=== PATIENT | male | born 1990 | race African-American/Black ===

== ENCOUNTER 2021-02-11 18:00 | Inpatient (IN) | payer MEDICAID, SELFPAY ==
--- NOTE | ~2021-02-11 | CT_ITS ---
EXAMINATION: CT CHEST WITHOUT CONTRAST CLINICAL INFORMATION: Persistent cough COMPARISON: Normal chest radiograph earlier today TECHNIQUE: Multidetector volumetric CT imaging of the chest was done. Axial MIP volume rendering provided. Sagittal and coronal reformatted images were obtained. This CT examination was performed using dose optimization techniques as appropriate, variously including the following: *Automated exposure control *Adjustment of mA and/or kV according to patient size (this includes techniques or standardized protocols for targeted exams where dose is matched to indication/reason for exam; i.e. extremities or head) *Use of iterative reconstruction technique DLP: 292 mGy-cm FINDINGS: LUNGS: The lungs are clear with no evidence of inflammation or nodules. MEDIASTINUM: The trachea is near the upper limits of normal in size measuring 22 x 26 mm. No mediastinal or hilar lymphadenopathy is seen. The thoracic aorta is of normal caliber. PLEURA: There is no pleural effusion. No pleural mass or thickening. AXILLA: No lymphadenopathy. UPPER ABDOMEN: Unremarkable. OSSEOUS STRUCTURES: Unremarkable. CT/CT chest wo con IMPRESSION: Negative exam.
--- NOTE | ~2021-02-11 | XR_ITS ---
EXAMINATION: XR CHEST CLINICAL INFORMATION: Shortness of breath COMPARISON: None TECHNIQUE: Frontal view of the chest was obtained. FINDINGS: No significant abnormality is noted involving the heart, lungs, mediastinum, bony thorax or soft tissues. XR/XR chest 1V IMPRESSION: Unremarkable examination.
[2021-02-11 18:09] VITALS: BP 141/90; PULSE 89; RESP 18; TEMP 37.4; O2SAT 98; BMI 25.0
--- NOTE | 2021-02-11 19:18 | ED_ITS ---
HPI - SOB/Dyspnea General Chief Complaint: Dyspnea Stated Complaint: diff breathing Time Seen by Provider: 02/11/21 19:15 Source: patient Mode of arrival: ambulatory Limitations: no limitations History of Present Illness HPI Narrative: 30 years old male came in for evaluation of asthma and wheezing. Symptoms started 2 weeks ago, patient has been evaluated twice in the ED in the last 2 weeks despite patient being using bronchodilator and steroids. Patient decline fever or chills, no recent travel or immobilization, no lower extremities swelling or tenderness, no history of DVT or PE. Related Data Allergies Allergy/AdvReac Type Severity Reaction Status Date / Time haloperidol [From Haldol] Allergy Unknown Verified 02/11/21 18:09 Review of Systems Review of Systems: All other systems are reviewed and are negative Constitutional: Reports as per HPI and Reports no additional constitutional complaints Eyes: Reports as per HPI and Reports no additional eye complaints Reports system reviewed and no additional complaints, except as documented Cardiovascular: Reports as per HPI and Reports no additional cardiovascular complaints Respiratory: Reports as per HPI and Reports no additional respiratory complaints Gastrointestinal: Reports as per HPI and Reports no additional gastrointestinal complaints Genitourinary: Reports no additional female genitourinary complaints Musculoskeletal: Reports no additional musculoskeletal complaints Skin/Breast: Reports system reviewed and no additional complaints, except as docu Psychiatric: Reports no additional psychiatric complaints Endocrine: Reports no additional endocrine complaints Hematologic/Lymphatic: Reports no additional hematologic/lymphatic complaints Allergic/Immunologic: Reports no additional allergic/immunologic complaints Reports system reviewed and no additional complaints, except as documented and Reports Abnormal speech present FOR[facility]LY [facility], [facility] Social History Social History Advance Directives: No Advance Directives Information Provided: Yes Physical Exam Vital Signs: Vital Signs: Last Vital Signs Temp 99.4 F 02/11/21 18:09 Pulse 83 02/11/21 19:39 Resp 18 02/11/21 18:09 BP 141/90 H 02/11/21 18:09 Pulse Ox 98 02/11/21 18:09 Body Mass Index 25.0 Vital signs have been reviewed as appeared to be correct. Blood pressure norm al. Heart rate normal. Respiration rate normal. Temperature normal. Oxygen saturation normal. Appearance: Alert. Oriented X3. No acute distress. Head: Normal external exam. Normocephalic. Atraumatic. No Mariee signs noted. No raccoon eyes noted Eyes: PERRLA. EOMI. Conjunctiva and sclera normal. Eyelids normal. ENT: TM's Normal. Pharynx normal. Uvula midline. Moist mucous membranes. No trismus noted. No drooling noted. No muffled voice noted. Neck: Normal inspection. Neck supple. FROM. No adenopathy. Thyroid Normal. No meningeal signs. No neck mass noted. CVS: Normal heart rate and rhythm. Heart sound normal. No murmurs noted. Pulses normal throughout. Respiratory: No respiratory distress. Painless inspiration. Bilateral diffuse mild expiratory wheezing, with prolonged expiration. accessory muscle usage noted or decreased air movement noted. Abdomen: Soft and nontender. Bowel sounds normal in all 4 quadrants. No distention noted. No organomegaly noted. No visible injury noted. Back: No CVA tenderness. Full range of motion noted. Skin: Skin warm and dry. Normal skin color. Normal skin turgor. No rashes/lesions/lacerations noted. Extremities: No lower extremity edema. Extremities exhibit normal range of motion. Extremities nontender. Neuro: Oriented X 3. Cranial nerve exam: II-XII are grossly intact No motor deficit. No sensory deficit. Reflexes normal. Course Course Course Narrative: Assessment and plan. 30-year-old male with history of asthma, been having asthma symptoms for the past 2 weeks despite using prednisone/bronchodilator, patient was evaluated twice in the ED in the last weeks with no improvement. Patient declined risk for PE or DVT. Will admit patient for continuous bronchodilator and steroid IV MDM - SOB/Dyspnea Lab Data Attestation: I reviewed the patient's lab results. Result diagrams: 02/11/21 19:36 02/11/21 19:36 Labs: Lab Results 02/11/21 02/11/21 02/11/21 Range/Units 19:36 19:36 19:36 WBC 7.7 (4.8-10.8) X10*3/uL RBC 4.93 (4.60-5.80) X10*6/uL Hgb 15.1 (14.0-18.0) g/dl Hct 43.4 (42-52) % MCV 88.0 (80-98) fL MCH 30.6 (27.0-33.0) pg MCHC 34.8 (31.0-36.0) g/dl RDW 12.7 (11.0-16.0) % Plt Count 383 (160-400) X10*3/uL MPV 8.2 L (9.4-12.4) fL Immature Gran % (Auto) 0.5 H (0.0-0.4) % Neut % (Auto) 72.8 (45-73) % Lymph % (Auto) 19.0 L (20-40) % [place] % (Auto) 6.3 (2-11) % Eos % (Auto) 1.0 (0-4) % Baso % (Auto) 0.4 (0-2) % Lymph # (Auto) 1.5 (1.2-4.9) X10*3/uL [place] # (Auto) 0.5 (0.1-1.2) X10*3/uL Eos # (Auto) 0.1 (0.0-0.4) X10*3/uL Baso # (Auto) 0.0 (0.0-0.2) X10*3/uL Abs Immat Gran (auto) 0.04 H (0.00-0.03) X10*3/uL Absolute Neuts (auto) 5.6 (2.0-8.3) X10*3/uL Absolute Nucleated RBC 0.000 (0.0-0.012) X10*3/uL Nucleated RBC % (auto) 0.0 (0.0-0.2) /100WBC D-Dimer NG/ML Sodium 141 (135-145) mmol/L Potassium 3.8 (3.3-5.1) mmol/L Chloride 105 (96-108) mmol/L Carbon Dioxide 28 (22-29) mmol/L Anion Gap 12 (12-20) BUN 12 (9-16) mg/dL Creatinine 1.25 (0.5-1.4) mg/dL Estim Creat Clear Calc 76.5 Estimated GFR > 60 Random Glucose 93 (60-115) mg/dL Calcium 9.7 (8.4-10.2) mg/dL COVID-19 ([facility]) Negative (Negative) COVID-19 Clin Com See Note 02/11/21 Range/Units 19:36 WBC (4.8-10.8) X10*3/uL RBC (4.60-5.80) X10*6/uL Hgb (14.0-18.0) g/dl Hct (42-52) % MCV (80-98) fL MCH (27.0-33.0) pg MCHC (31.0-36.0) g/dl RDW (11.0-16.0) % Plt Count (160-400) X10*3/uL MPV (9.4-12.4) fL Immature Gran % (Auto) (0.0-0.4) % Neut % (Auto) (45-73) % Lymph % (Auto) (20-40) % [place] % (Auto) (2-11) % Eos % (Auto) (0-4) % Baso % (Auto) (0-2) % Lymph # (Auto) (1.2-4.9) X10*3/uL [place] # (Auto) (0.1-1.2) X10*3/uL Eos # (Auto) (0.0-0.4) X10*3/uL Baso # (Auto) (0.0-0.2) X10*3/uL Abs Immat Gran (auto) (0.00-0.03) X10*3/uL Absolute Neuts (auto) (2.0-8.3) X10*3/uL Absolute Nucleated RBC (0.0-0.012) X10*3/uL Nucleated RBC % (auto) (0.0-0.2) /100WBC D-Dimer < 200 NG/ML Sodium (135-145) mmol/L Potassium (3.3-5.1) mmol/L Chloride (96-108) mmol/L Carbon Dioxide (22-29) mmol/L Anion Gap (12-20) BUN (9-16) mg/dL Creatinine (0.5-1.4) mg/dL Estim Creat Clear Calc Estimated GFR Random Glucose (60-115) mg/dL Calcium (8.4-10.2) mg/dL COVID-19 ([facility]) (Negative) COVID-19 Clin Com Imaging Data Chest x-ray: Radiologist's impression: Unremarkable examination. Discharge Plan Discharge Clinical Impression: Asthma with exacerbation Patient Disposition: Admitted As Inpatient
[2021-02-11] MEDS: Albuterol Sulfate (0.083%) 2.5 MG/3 ML VIAL.NEB INHALE (19:38)
[2021-02-11 19:39] VITALS: PULSE 83; O2SAT 97
[2021-02-11] MEDS: Albuterol/Iprat 2.5/0.5MG 3 ML AMPUL.NEB INHALE (19:39)
[2021-02-11] MEDS: methylPREDNISolone Sod Succ 125 MG/2 ML VIAL IVPUSH (19:43)
[2021-02-11] MEDS: LORazepam 0.5 MG TABLET PO (19:43)
[2021-02-11 19:49] LABS: MANUAL DIFF FLAG NO
[2021-02-11 19:50] LABS: Basophils Percent Auto 0.4 % (0-2); Eosinophils Absolute Auto 0.1 X10*3/uL (0.0-0.4); Hematocrit 43.4 % (42-52); Hemoglobin 15.1 g/dl (14.0-18.0); Imm Gran Abs Auto 0.04 X10*3/uL (0.00-0.03); Imm Gran Pct Auto 0.5 % (0.0-0.4); Lymphocytes Absolute Auto 1.5 X10*3/uL (1.2-4.9); Mean Corpuscular HGB Conc 34.8 g/dl (31.0-36.0); Mean Corpuscular Hemoglobin 30.6 pg (27.0-33.0); Mean Platelet Volume 8.2 fL (9.4-12.4); Monocytes Absolute Auto 0.5 X10*3/uL (0.1-1.2); Monocytes Percent Auto 6.3 % (2-11); Neutrophils Absolute Auto 5.6 X10*3/uL (2.0-8.3); Neutrophils Percent Auto 72.8 % (45-73); Platelet Count 383 X10*3/uL (160-400); Red Blood Count 4.93 X10*6/uL (4.60-5.80); Red Cell Distribution Width 12.7 % (11.0-16.0); White Blood Count 7.7 X10*3/uL (4.8-10.8)
[2021-02-11 19:59] LABS: D Dimer < 200 NG/ML
[2021-02-11 20:06] LABS: COVID-19 Test Negative (Negative)
[2021-02-11 20:08] LABS: Anion Gap 12 (12-20); Blood Urea Nitrogen 12 mg/dL (9-16); Calcium 9.7 mg/dL (8.4-10.2); Carbon Dioxide 28 mmol/L (22-29); Chloride 105 mmol/L (96-108); Creatinine Clr Calc Pharmacy 76.5; Estimated Glomerular Filt Rate > 60; Glucose Random 93 mg/dL (60-115); Potassium 3.8 mmol/L (3.3-5.1); Sodium 141 mmol/L (135-145)
[2021-02-11 21:11] VITALS: BP 155/77; PULSE 91; RESP 18; TEMP 37.1; O2SAT 98
--- NOTE | 2021-02-11 21:39 | PM.IMHP ---
History of Present Illness Date of Service: 02/11/21 Chief Complaint: asthma exacerbation 30-year-old male with past medical history of AFib, asthma, and DVT presents to the hospital with complaints of wheezing and persistent cough for the past 2 weeks. Patient reports that he has been seen in the hospital multiple times and was prescribed prednisone with no relief of his symptoms. His symptoms wake him up every night. He is having shortness of breath, cough, minimal sputum production, no fever or chills, he is experiencing significant anxiety as well. He denies any chest pain, no abdominal pain nausea or vomiting, no urinary symptoms and no lower extremity edema. Patient reports that he has had used inhaled form of illicit drugs and is worried about damaging his lungs and would like a CT scan done. All other review of system negative otherwise. Patient reports that he has been around pads and has carpet at home. He does smoke marijuana daily. On arrival to the ED patient hemodynamically stable with no significant abnormal vitals Labs are significant for WBC count of [address] negative for any abnormality, no evidence of pulmonary infection or interstitial disease COVID-19 negative Patient will be admitted given failed outpatient therapy Review of Systems Review of Systems: Yes all other systems are reviewed and are negative [facility] Medical History Afib Asthma DVT (deep venous thrombosis) Family History Mother Afib Pertinent family history: No present history Surgical History No pertinent past surgical history Social History Advance Directives: No Advance Directives Information Provided: Yes Meds Allergies Allergy/AdvReac Type Severity Reaction Status Date / Time haloperidol [From Haldol] Allergy Unknown Verified 02/11/21 18:09 Physical Exam Vital Signs and Narrative: Vital Signs: Last Vital Signs Temp 98.8 F 02/11/21 21:11 Pulse 91 02/11/21 21:11 Resp 18 02/11/21 21:11 BP 155/77 H 02/11/21 21:11 Pulse Ox 98 02/11/21 21:11 Body Mass Index 25.0 Const: General: cooperative and no acute distress Orientation/consciousness: patient oriented x3 Eyes: General: appearance normal, both eyes and all related structures Pupils: Equal, round and reactive pupils present Resp: Other: Expiratory wheezing Effort & Inspection: normal respiratory effort Cardio: Rate: regular rate Rhythm: regular rhythm GI: Palpation (GI): Soft to palpation Auscultation: normal bowel sounds Skin: General skin exam: no rashes or lesions noted Neuro: General: patient oriented x3 Cranial nerves: Yes Equal, round and reactive pupils present Cognition (Neuro): normal cognition Extrem: General: Yes normal to inspection and Yes no pedal edema Psych: Other: Anxious Results Labs CBC and Chem 7: 02/11/21 19:36 02/11/21 19:36 Labs: Laboratory Results - last 24 hr 02/11/21 02/11/21 02/11/21 19:36 19:36 19:36 MCV 88.0 MCH 30.6 MCHC 34.8 RDW 12.7 Plt Count 383 MPV 8.2 L Immature Gran % (Auto) 0.5 H Neut % (Auto) 72.8 Lymph % (Auto) 19.0 L [place] % (Auto) 6.3 Eos % (Auto) 1.0 Baso % (Auto) 0.4 Lymph # (Auto) 1.5 [place] # (Auto) 0.5 Eos # (Auto) 0.1 Baso # (Auto) 0.0 Abs Immat Gran (auto) 0.04 H Absolute Neuts (auto) 5.6 Absolute Nucleated RBC 0.000 Nucleated RBC % (auto) 0.0 D-Dimer Anion Gap 12 Estim Creat Clear Calc 76.5 Estimated GFR > 60 Random Glucose 93 Calcium 9.7 COVID-19 ([facility]) Negative COVID-19 Clin Com See Note 02/11/21 19:36 MCV MCH MCHC RDW Plt Count MPV Immature Gran % (Auto) Neut % (Auto) Lymph % (Auto) [place] % (Auto) Eos % (Auto) Baso % (Auto) Lymph # (Auto) [place] # (Auto) Eos # (Auto) Baso # (Auto) Abs Immat Gran (auto) Absolute Neuts (auto) Absolute Nucleated RBC Nucleated RBC % (auto) D-Dimer < 200 Anion Gap Estim Creat Clear Calc Estimated GFR Random Glucose Calcium COVID-19 ([facility]) COVID-19 Clin Com Imaging Radiologist's Impressions: Impressions Chest X-Ray 02/11/21 19:15 IMPRESSION: Unremarkable examination. Assessment and Plan (1) Asthma with exacerbation: Status: Acute (2) Persistent cough: Status: Acute 30-year-old male with past medical history of asthma presents to the hospital with wheezing, cough, failed outpatient therapy with prednisone # asthma exacerbation - will start him on IV Solu-Medrol 40 b.i.d. - DuoNeb p.r.n. and scheduled - patient not hypoxic monitor respiratory status # cough - no evidence of infection or interstitial lung disease on CT - supportive measures with antitussives # A.fib - patient reports that he has history of AFib although unclear what medication he takes, pending med review # history of DVT - pending med review DVT prophylaxis: Lovenox Quality Stroke Does the patient have a stroke diagnosis?: No VTE Prior VTE?: No VTE Risk Level:: Medical - moderate - high VTE Device Contraindication: Treatment Not Indicated VTE Drug Contraindication: N/A - Med Ordered
[2021-02-11] MEDS: LORazepam 2 MG/ML VIAL 1 MG IVPUSH (22:31)
[2021-02-12] VITALS: BP 136/77; PULSE 82; RESP 16; TEMP 37.1; O2SAT 98
--- NOTE | 2021-02-12 00:49 | PC.NURSE ---
patient in good spirits ,ask for snacks ,had chips and coffee ,rn aware .
[2021-02-12] MEDS: 0.9 % Sodium Chloride Flush 3 ML SYRINGE IVFLUSH (02:02)
[2021-02-12] MEDS: methylPREDNISolone Sod Succ 40 MG/ML VIAL IVPUSH (05:44)
[2021-02-12 06:00] VITALS: BP 139/72; PULSE 57; RESP 16; TEMP 36.9; O2SAT 99
[2021-02-12 07:15] LABS: MANUAL DIFF FLAG NO
[2021-02-12 07:18] LABS: Basophils Percent Auto 0.1 % (0-2); Hematocrit 45.9 % (42-52); Hemoglobin 15.8 g/dl (14.0-18.0); Imm Gran Abs Auto 0.07 X10*3/uL (0.00-0.03); Imm Gran Pct Auto 0.9 % (0.0-0.4); Lymphocytes Absolute Auto 0.8 X10*3/uL (1.2-4.9); Lymphocytes Percent Auto 9.8 % (20-40); Mean Corpuscular HGB Conc 34.4 g/dl (31.0-36.0); Mean Corpuscular Hemoglobin 29.9 pg (27.0-33.0); Mean Corpuscular Volume 86.9 fL (80-98); Monocytes Absolute Auto 0.3 X10*3/uL (0.1-1.2); Monocytes Percent Auto 3.9 % (2-11); Neutrophils Percent Auto 85.3 % (45-73); Platelet Count 428 X10*3/uL (160-400); Red Blood Count 5.28 X10*6/uL (4.60-5.80); Red Cell Distribution Width 12.7 % (11.0-16.0); White Blood Count 8.2 X10*3/uL (4.8-10.8)
--- NOTE | 2021-02-12 07:39 | PC.NURSE ---
nic connect sent to pa- pt requesting to leave ama states he feels better
--- NOTE | 2021-02-12 07:45 | PC.NURSE ---
pt signed ama paper- pa aware
--- NOTE | 2021-02-12 07:47 | PHA.MEDREC ---
Pharmacy Consult ? Medication Reconciliation Pharmacy has reviewed the medication reconciliation completed by overnight nurse. Spoke with patient and some medication were missing for list. Verifiy that the medications patient reported were being filled. Hafsa Reed, PharmD
[2021-02-12 07:56] LABS: Anion Gap 14 (12-20); Blood Urea Nitrogen 11 mg/dL (9-16); Carbon Dioxide 26 mmol/L (22-29); Chloride 104 mmol/L (96-108); Creatinine Clr Calc Pharmacy 95.7; Estimated Glomerular Filt Rate > 60; Glucose Random 116 mg/dL (60-115); Potassium 4.6 mmol/L (3.3-5.1); Sodium 139 mmol/L (135-145)
[2021-02-12 08:03] LABS: Calcium 10.6 mg/dL (8.4-10.2)
--- NOTE | 2021-02-12 08:58 | MHC.CM.PN ---
CM ATTEMPTED TO MEET W/PT HOWEVER PT LEFT AMA PRIOR TO COMING TO UNIT.
--- NOTE | 2021-02-12 13:12 | PM.DS ---
DS: Providers Provider Date of Service: 02/12/21 Date of admission: 02/11/21 21:39 Primary care physician: Ed Ernst MD DS: Diagnosis Discharge Diagnosis (1) Asthma with exacerbation: Status: Acute (2) Persistent cough: Status: Acute DS: Summary Hospital Course Hospital Course: From H&P on day of admission 30-year-old male with past medical history of AFib, asthma, and DVT presents to the hospital with complaints of wheezing and persistent cough for the past 2 weeks.? Patient reports that he has been seen in the hospital multiple times and was prescribed prednisone with no relief of his symptoms.? His symptoms wake him up every night.? He is having shortness of breath, cough, minimal sputum production, no fever or chills, he is experiencing significant anxiety as well.? He denies any chest pain, no abdominal pain nausea or vomiting, no urinary symptoms and no lower extremity edema.? Patient reports that he has had used inhaled form of illicit drugs and is worried about damaging his lungs and would like a CT scan done. All other review of system negative otherwise. Patient reports that he has been around pads and has carpet at home.? He does smoke marijuana daily. On arrival to the ED patient hemodynamically stable with no significant abnormal vitals Labs are significant for WBC count of 7 otherwise unremarkable.? Chest CT negative for any abnormality, no evidence of pulmonary infection or interstitial disease? COVID-19 negative Patient will be admitted given failed outpatient therapy left AMA this morning before I was able to evaluate him. Time Spent with Patient Time attestation: Total time spent providing and/or coordinating discharge services: Discharge coordination time: Greater than 30 minutes Quality: Stroke Does the patient have a stroke diagnosis?: No Physical Exam Vital Signs: Vital Signs: Last Vital Signs Temp 98.4 F 02/12/21 06:00 Pulse 57 02/12/21 06:00 Resp 16 02/12/21 06:00 BP 139/72 02/12/21 06:00 Pulse Ox 99 02/12/21 06:00 Body Mass Index 25.0 DS: Data Data Completed and Pending Labs on day of discharge: Laboratory Results - last 24 hr 02/11/21 02/11/21 02/11/21 19:36 19:36 19:36 WBC 7.7 RBC 4.93 Hgb 15.1 Hct 43.4 MCV 88.0 MCH 30.6 MCHC 34.8 RDW 12.7 Plt Count 383 MPV 8.2 L Immature Gran % (Auto) 0.5 H Neut % (Auto) 72.8 Lymph % (Auto) 19.0 L [place] % (Auto) 6.3 Eos % (Auto) 1.0 Baso % (Auto) 0.4 Lymph # (Auto) 1.5 [place] # (Auto) 0.5 Eos # (Auto) 0.1 Baso # (Auto) 0.0 Abs Immat Gran (auto) 0.04 H Absolute Neuts (auto) 5.6 Absolute Nucleated RBC 0.000 Nucleated RBC % (auto) 0.0 D-Dimer Sodium 141 Potassium 3.8 Chloride 105 Carbon Dioxide 28 Anion Gap 12 BUN 12 Creatinine 1.25 Estim Creat Clear Calc 76.5 Estimated GFR > 60 Random Glucose 93 Calcium 9.7 COVID-19 ([facility]) Negative COVID-19 [employer] Com See Note 02/11/21 02/12/21 02/12/21 19:36 06:54 06:54 WBC 8.2 RBC 5.28 Hgb 15.8 Hct 45.9 MCV 86.9 MCH 29.9 MCHC 34.4 RDW 12.7 Plt Count 428 H MPV 8.0 L Immature Gran % (Auto) 0.9 H Neut % (Auto) 85.3 H Lymph % (Auto) 9.8 L [place] % (Auto) 3.9 Eos % (Auto) 0.0 Baso % (Auto) 0.1 Lymph # (Auto) 0.8 L [place] # (Auto) 0.3 Eos # (Auto) 0.0 Baso # (Auto) 0.0 Abs Immat Gran (auto) 0.07 H Absolute Neuts (auto) 7.0 Absolute Nucleated RBC 0.000 Nucleated RBC % (auto) 0.0 D-Dimer < 200 Sodium 139 Potassium 4.6 D Chloride 104 Carbon Dioxide 26 Anion Gap 14 BUN 11 Creatinine 1.00 Estim Creat Clear Calc 95.7 Estimated GFR > 60 Random Glucose 116 H Calcium 10.6 H D COVID-19 ([facility]) COVID-19 Clin Com Discharge Plan Discharge Patient Disposition: Left Against Medical Advice Discharge Diagnosis: asthma exacerbation Discharge Medications: No Action carvedilol 6.25 mg tablet 1 tab PO BID RF: 0 gabapentin 300 mg capsule 1 cap PO TID PRN (Reason: Pain/ANXIETY) RF: 0 hydrochlorothiazide 25 mg tablet 1 tab PO DAILY RF: 0 albuterol sulfate 90 mcg/actuation HFA aerosol inhaler inhalation RF: 0 Xarelto 10 mg tablet 1 tab PO DAILY RF: 0 clonidine HCl 0.1 mg tablet 1 tab PO TID PRN (Reason: Anxiety) RF: 0 disulfiram 250 mg tablet 1 tab PO DAILY RF: 0 Discharge Orders: Discharge Order (Routine); Ordered 02/12/21 Ordered By: Catrina Alonso Care Plan Goals: Left against medical advice Health Concerns: Asthma exacerbation Plan of Treatment: Call to schedule follow-up appointment your PCP. Assessment: admitted for asthma exacerbation left against medical advice Discharge Date/Time: 02/12/21 07:53
== END 2021-02-12 07:53 | disposition left against medical advice (07) | DRG 141 ==
LOC: HO.ED 19:22 → HO.EDOVER 22:11 → HO.S3 02-12 07:13 → HO.EDOVER 02-12 07:52
PROVIDERS: Admitting Provider Internal Medicine; Emergency Provider Emergency Medicine; PCP Internal Medicine; Visit Provider Physician Assistant Medical
DX: J45.901 Unspecified asthma with (acute) exacerbation (principal); I48.91 Unspecified atrial fibrillation; Z20.822 Contact with and (suspected) exposure to COVID-19; Z86.718 Personal history of other venous thrombosis and embolism; Z79.01 Long term (current) use of anticoagulants; Z79.899 Other long term (current) drug therapy
CPT/HCPCS: 36415; 71045; 71250; 80048; 85025; 85379; 87635; 94640; 99219; 99284; J2060; J2920; J2930